=== PATIENT | female | born 1985 | race Caucasian/White ===

== ENCOUNTER → 2017-04-16 | Outpatient (CLI) | payer OTHER ==
--- NOTE | 2017-04-16 23:42 | CONS ---
CONSULTATION DATE OF SERVICE: 04/16/2017 This 31-year-old lady has been evaluated in the sleep center for multiple awakenings from sleep and difficulties with initiating sleep and falling asleep after awakenings. HISTORY OF PRESENT ILLNESS/SLEEP-WAKE EVALUATION: Patient's usual sleep schedule on working days is from 9 p.m. to 6 a.m., on weekends from around 10 or 11 p.m. to 8:30 a.m. Sometimes she has problems with falling asleep, although she does not watch TV in the bedroom. According to her , she does not snore, but she wakes up from sleep up to 7 times with up to 3 episodes of nocturia with episodes of sweating, restless legs, grinding teeth. In the morning she wakes up tired and has sleepiness during the day. [place] Sleepiness Scale is increased at 10. When she has time, she may take a nap around 3 p.m. Sometimes she sees her dreams right after closing her eyes, which could be an indication of hypnagogic hallucinations. No history of sleep paralysis or cataplexy. PAST MEDICAL HISTORY: Positive for hypothyroidism. PAST SURGICAL HISTORY: 1. Tonsillectomy. 2. Adenoidectomy. 3. Appendectomy. MEDICATIONS: 1. Levothyroxine. 2. . 3. control pills. REVIEW OF SYSTEMS: Awakenings from sleep, sleepiness during the day, sometimes difficulties with initiating sleep. SOCIAL HISTORY: Negative for smoking. Alcohol consumption occasional. FAMILY HISTORY: Hypertension, heart problems, arthritis, sinus headaches, bronchitis, pneumonia, headaches, cancer, thyroid problems, mental illness. PHYSICAL EXAMINATION: lady without distress. VITAL SIGNS: BP 135/84, HR 65, RR 16, height 5 feet 3 inches, weight 233, BMI 41.2, temperature 98.0, oxygen saturation at room air 100%. HEENT: PERRLA, EOMI. Evaluation of oropharynx showed tongue protrudes midline; extremely low position of soft palate. NECK: Supple. No JVD. Thyroid is not palpable. LUNGS: Clear to percussion and to auscultation. Good air exchange. No wheezing or rhonchi. HEART: S1, S2 regular. No murmurs, gallops or rubs. ABDOMEN: Obese. Soft and nontender. Bowel sounds are present. No organomegaly appreciated. EXTREMITIES : No clubbing or cyanosis. CRAFT RECRUITER: Awake, alert, and oriented X3. Cranial nerves 2 to 7 intact. There is no fasciculation or atrophy. noted. No focal deficits observed. IMPRESSION: 1. Low position of soft palate, multiple awakenings from sleep with nocturia, excessive daytime sleepiness; obstructive sleep apnea-hypopnea syndrome. 2. Difficulties to initiate sleep and difficulties to reinitiate sleep after awakenings in the middle of the night. Psychophysiological insomnia. 3. Obesity; body mass index of 41.2. 4. Hypothyroidism. 5. Status post tonsillectomy and adenoidectomy. 6. Status post appendectomy. PLAN: 1. Polysomnography for evaluation of patient's breathing during sleep. 2. CPAP/BiPAP titration if sleep study confirms obstructive sleep apnea-hypopnea syndrome. 3. Preferable position during sleep on the side. 4. No driving if patient feels any sleepiness. Patient is aware of civil and criminal liability for unsafe driving. 5. I will see patient for follow up visit to explain results of testing and following plan. Thank you very much for referring this patient for consultation. Sincerely, Neil Cunha MD, PhD, FAASM Diplomat of [place] [employer] [place] [employer] Nondestructive Tester of [facility] Frannie MMODL / IJN: [id number] /
== END | disposition home or self-care (01) ==
LOC: SLEEP 15:01
PROVIDERS: ATTEND Internal Medicine
DX: G47.33 Obstructive sleep apnea (adult) (pediatric) (principal); E66.9 Obesity, unspecified; F10.20 Alcohol dependence, uncomplicated; E03.9 Hypothyroidism, unspecified; Z90.89 Acquired absence of other organs; Z68.41 Body mass index [BMI] 40.0-44.9, adult; Z98.890 Other specified postprocedural states; Z79.899 Other long term (current) drug therapy; Z79.3 Long term (current) use of hormonal contraceptives
CPT/HCPCS: 99211

== ENCOUNTER → 2018-12-17 | Outpatient (CLI) | payer OTHER ==
--- NOTE | 2018-12-19 09:53 | US ---
EXAMINATION TYPE: Transabdominal DATE OF EXAM: 12/17/2018 4:50 PM COMPARISON: NONE CLINICAL HISTORY: Z36 Confirm Dates. EXAM PERFORMED: Transvaginal (TV) and Transabdominal (TA) EXAM MEASUREMENTS: GESTATIONAL AGE / DATING Physician Established: Not yet established Dates by LMP: ( 9 weeks/1 days) EDC: 07/20/18 Dates by First Scan: No previous this is first scan Dates by Current Scan for: (9 weeks/3 days) EDC: 07/18/18 MATERNAL ANATOMY Morbidly obese patient. Uterus: 9.9 x 7.3 x 6.8cm Right Ovary: not visualized due to increased uterine size/obesity Left Ovary: not visualized due to increased uterine size/obesity Post CDS / Adnexa: wnl Presence of subchorionic bleed: 1.9 x 0.4 x 0.6cm GESTATION / SURVEY CRL: 2.7 (9 weeks/3 days) Yolk Sac (normal less than 6mm): 3mm Heart Rate: 172 bpm Rhythm: Normal IUP: Viable IUP Date of LMP: 10/14/18 Beta HcG (if available): Not available at this time IMPRESSION: 1. A spiculated Single intrauterine gestation estimated at 9 weeks 3 days gestation based on the [place] n-rump length. Cardiac activity measures 172 bpm. 2. Small subchorionic hemorrhage measuring 1.9 x 0.4 x 0.6 cm.
== END | disposition home or self-care (01) ==
LOC: RADUSWWP 16:18
PROVIDERS: ATTEND Obstetrics & Gynecology
DX: O20.8 Other hemorrhage in early pregnancy (principal); Z3A.09 9 weeks gestation of pregnancy
CPT/HCPCS: 76801; 76817

== ENCOUNTER → 2019-02-28 | Outpatient (CLI) | payer OTHER ==
--- NOTE | 2019-02-28 11:02 | US ---
EXAMINATION TYPE: US OB anatomy transabd DATE OF EXAM: 02/28/2019 COMPARISON: NONE HISTORY: O36.62X0 Large for dates, 2dn trimester Anatomy TECHNIQUE: Transvaginal (TV) EXAM MEASUREMENTS: GESTATIONAL AGE / DATING Physician Established: (19 weeks/ days) 4 EDC: 07/21/2019 Dates by LMP: (19 weeks/4 days) 07/21/2019 EDC Dates by First Scan: (09 weeks/3 days) EDC: 07/21/2019 Dates by Current Scan for: (19 weeks/1 days) EDC: 07/24/2019 SURVEY IUP: Single PLACENTA: Anterior PREVIA: No previa FREYA: 12.9 cm Normal CERVICAL LENGTH (transabdominal: norm > 3.0cm): 3.5 cm BIOMETRY PRESENTATION: Variable LIE: Variable BPD: 4.6 cm 19 weeks / 6 days HC: 12 cm 16 weeks / 0 days AC: 17.5 cm 22 weeks / 1 days FL: 3.3 cm 20 weeks / 3 days ESTIMATED WEIGHT IN GRAMS: 373.13 grams ESTIMATED WEIGHT IN LBS/OZ: 0 lbs. 13 oz. WEIGHT PERCENTAGE BASED ON ESTABLISHED DATE: 96.1 % HC/AC: 1.05cm Normal FL/AC: 19.5cm Normal HEART RATE: 170 bpm RHYTHM: Normal ANATOMY SEEN (within normal limits): * Lateral Vent (< 1 cm) .6 cm * Cisterna Magna (< 1.1 cm) .5 cm * Nuchal Fold (< 0.6 cm) .4 cm * Cerebellum (varies with age) 1.7 cm Choroid Plexus (bilateral) Midline Falx Cavus Septi Pellucidi Outflow tracts: LVOT Stomach Situs Nose / Lips Diaphragm Kidneys (bilateral) Bladder Three Vessel Cord Longitudinal Spine Transverse Spine Arms (bilateral) Legs (bilateral) ANATOMY SEEN (does not appear within normal limits): ANATOMY NOT SEEN: 4 chamber heart RVOT Cord Insert MATERNAL WALL MEASUREMENT: 3.0 cm from skin to anterior uterine wall (if exam limited due to body sharpe bitus). Patient returning for additional imaging in 2 weeks. IMPRESSION: Somewhat limited exam given patient body habitus. 1. A 4 chamber heart, right ventricular outflow track and cord insertion are not seen and the patient will return for additional imaging in 2 weeks. 2. Single live intrauterine is seen with a sonographic age of 19 weeks and 1 day and estima marissa date of delivery of 07/24/2019. Amniotic fluid index and cervical length are within normal limits.
== END | disposition home or self-care (01) ==
LOC: RADUSWWP 08:55
PROVIDERS: ATTEND Obstetrics & Gynecology
DX: O36.62X0 Maternal care for excessive fetal growth, second trimester, not applicable or unspecified (principal); Z3A.19 19 weeks gestation of pregnancy
CPT/HCPCS: 76811

== ENCOUNTER → 2019-03-10 | Outpatient (CLI) | payer OTHER ==
--- NOTE | 2019-03-11 07:14 | US ---
EXAMINATION TYPE: US OB Call Back DATE OF EXAM: 03/10/2019 COMPARISON: 02/28/2019 CLINICAL HISTORY: O36.62X0 EXCESSIVE GROWTH. Call back for cord insertion, RVOT and 4 chamber. GESTATIONAL AGE / DATING Dates by Initial Survey Scan: (21 weeks/0 days) EDC: 07/21/2019 HEART RATE: 142 bpm RHYTHM: Normal ANATOMY SEEN (second anatomic survey look): Four Chamber Heart Outflow tracts:? RVOT Cord Insert MATERNAL WALL MEASUREMENT: 4.3 cm from skin to anterior uterine wall (if exam limited due to body sharpe bitus). 4CH heart, RVOT and Cord insertion seen on today's call back ultrasound. IMPRESSION: 1. Additional small parts evaluate abnormal. 2. Cardiac activity measures 142 bpm was observed during the study.
== END | disposition home or self-care (01) ==
LOC: RADUSWWP 08:24
PROVIDERS: ATTEND Obstetrics & Gynecology
DX: Z53.9 Procedure and treatment not carried out, unspecified reason (principal)

== ENCOUNTER 2019-07-16 06:18 | Inpatient (IN) | payer OTHER ==
[2019-07-16] MEDS ORDERED: CARBOPROST TROMETHAMINE 250 MCG/ML 1 ML AMP IM PRN (06:55)
[2019-07-16] MEDS ORDERED: LIDOCAINE 0.5% (PF) 5 MG/ML (50 ML SDV) SQ PRN (06:55)
[2019-07-16] MEDS ORDERED: METHYLERGONOVINE 0.2 MG/ML 1 ML AMP IM PRN (06:55)
[2019-07-16] MEDS ORDERED: OXYTOCIN 10 UNIT/ML 1 ML VIAL IM PRN (06:55)
[2019-07-16] MEDS ORDERED: TERBUTALINE 1 MG/ML VIAL SQ PRN (06:55)
[2019-07-16] MEDS ORDERED: BUTORPHANOL 1 MG/ML 1 ML VIAL IV PRN (07:39)
[2019-07-16 08:13] LABS: Basophils % (A) 0 %; Eosinophils # (A) 0.3 k/uL (0-0.7); Eosinophils % (A) 2 %; HCT 37.8 % (34.0-46.0); HGB 12.2 gm/dL (11.4-16.0); Hypochromasia Slight; Lymphocytes # (A) 2.6 k/uL (1.0-4.8); Lymphocytes % (A) 18 %; MCHC 32.3 g/dL (31.0-37.0); MCV 83.7 fL (80.0-100.0); Mean Platelet Volume 8.5; Monocytes # (A) 0.7 k/uL (0-1.0); Monocytes % (A) 5 %; Neutrophils # (A) 10.8 k/uL (1.3-7.7); Neutrophils % (A) 74 %; Platelet Count 271 k/uL (150-450); RBC 4.52 m/uL (3.80-5.40); RDW 14.5 % (11.5-15.5); WBC 14.6 k/uL (3.8-10.6)
[2019-07-16] MEDS: LACTATED RINGERS 1,000 ML IV SCH ×2 (09:36→23:03)
[2019-07-16] MEDS ORDERED: LACTATED RINGERS 1,000 ML IV SCH (09:45)
[2019-07-16] MEDS: OXYTOCIN 30 UNITS/500 ML NS 30 UNIT in SALINE 1 500ML.BAG IV SCH (09:48)
--- NOTE | 2019-07-16 11:38 | P.HPOB ---
History of Present Illness H&P Date: 07/16/19 Chief Complaint: Spontaneous rupture of membranes 33-year-old presents at 39 weeks and 2 days with spontaneous rupture membranes at 2 AM. She presented to the hospital around 6:00 in the morning and she was 37 m dilated, 50% effaced, and -3 station. Kalyn irregularly. heart tones 130 with moderate variability and reactive. Review of Systems All systems: negative Constitutional: Denies chills, Denies fever Eyes: denies blurred vision, denies pain Ears, nose, mouth and throat: Denies headache, Denies sore throat Cardiovascular: Denies chest pain, Denies shortness of breath Respiratory: Denies cough Gastrointestinal: Denies abdominal pain, Denies diarrhea, Denies nausea, Denies vomiting Genitourinary: Denies dysuria, Denies hematuria Musculoskeletal: Denies myalgias Integumentary: Denies pruritus, Denies rash Neurological: Denies numbness, Denies weakness Psychiatric: Denies anxiety, Denies depression Endocrine: Denies fatigue, Denies weight change Past Medical History Past Medical History: Thyroid Disorder Additional Past Medical History / Comment(s): hx migraines, febrile seizures as (stopped at 3 yo), hypoglycemia, nearsightedness-glasses at times, hypothyroidism (125 mcg levothyroxine. Obstetric history: She's had 2 previous vaginal deliveries, this is her third . She's had care with Dr. Lyons since the first trimester. 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 Blood type is O+, antibody is negative, rubella immune, HIV nonreactive, syphilis and hepatitis were both negative. Thyroid has been checked a few times during the and remained euthyroid. History of Any Multi-Drug Resistant Organisms: None Reported Past Surgical History: Adenoidectomy, Appendectomy, Tonsillectomy Additional Past Surgical History / Comment(s): 1999 and 2005 Past Anesthesia/Blood Transfusion Reactions: No Reported Reaction Past Psychological History: Anxiety, Depression Additional Psychological History / Comment(s): hx. was prev on meds. no meds x 4-5 years Smoking Status: Never smoker Past Alcohol Use History: None Reported Past Drug Use History: None Reported - Past Family History Father Additional Family Medical History / Comment(s): depression Mother Family Medical History: Asthma, Hypertension Medications and Allergies Home Medications Medication Instructions Recorded Confirmed Type Levothyroxine Sodium [Synthroid] 125 mg PO DAILY 07/16/19 07/16/19 History Allergies Allergy/AdvReac Type Severity Reaction Status Date / Time No Known Allergies Allergy Verified 07/16/19 06:53 Exam Osteopathic Statement: *. No significant issues noted on an osteopathic structural exam other than those noted in the History and Physical/Consult. Vital Signs Temp Pulse Resp BP Pulse Ox 07/16/19 09:59 96.9 F L 87 20 113/68 07/16/19 06:55 97.2 F L 86 14 119/74 98 Intake and Output 07/15/19 07/16/19 07/16/19 22:59 06:59 14:59 Other: Weight 117.934 kg 117.934 kg Heart: Regular rate and rhythm Lungs: Clear to auscultation bilaterally Abdomen: Soft, nontender Extremities: Negative Homans sign Results Result Diagrams: 07/16/19 07:25 Abnormal Lab Results - Last 24 Hours (Table) 07/16/19 Range/Units 07:25 WBC 14.6 H (3.8-10.6) k/uL Neutrophils # 10.8 H (1.3-7.7) k/uL Assessment and Plan (1) Spontaneous rupture of membranes Current Visit: Yes Status: Acute Code(s): [id number] - SNOMED Code(s): 120708335 Plan: 1. Admit to family place 2. The patient has an extensive plan which includes the fact that she doesn't really want Pitocin. I advised that she can wait a few more hours before getting Pitocin but she may need Pitocin augmentation in order to get her contractions more regular to deliver this baby in a timely fashion since she did rupture membranes at 2 AM. Patient is in agreement with this plan. 3. Anticipate normal vaginal delivery
[2019-07-16] MEDS ORDERED: CITRIC ACID-SODIUM CITRATE 15 ML CUP PO ONE (13:15)
[2019-07-16] MEDS ORDERED: ceFAZolin 3 GM in SODIUM CHLORIDE 0.9% 100 ML IVPB ONE (13:30)
[2019-07-16] MEDS ORDERED: MORPHINE SULFATE (PF) 0.3 MG/0.3 ML SYR ONE (13:55)
[2019-07-16] MEDS ORDERED: OXYTOCIN 10 UNIT/ML 1 ML VIAL ONE (13:55)
[2019-07-16] MEDS ORDERED: ONDANSETRON 4 MG/2 ML VIAL ONE (13:55)
[2019-07-16] MEDS ORDERED: PHENYLEPHRINE-0.9% NACL SYG 1 MG/10 ML SYRINGE ONE (13:55)
[2019-07-16] MEDS ORDERED: KETOROLAC 30 MG/ML 1 ML VIAL ONE (13:55)
[2019-07-16] MEDS ORDERED: diphenhydrAMINE 50 MG CAP PO PRN (14:41)
[2019-07-16] MEDS ORDERED: diphenhydrAMINE 50 MG/ML 1 ML VIAL IVP PRN ×2 (14:41)
[2019-07-16] MEDS ORDERED: diphenhydrAMINE 25 MG CAP PO PRN (14:41)
[2019-07-16] MEDS ORDERED: ZOLPIDEM 5 MG TAB PO PRN (14:41)
[2019-07-16] MEDS ORDERED: ONDANSETRON 4 MG/2 ML VIAL IVP PRN ×2 (14:41→14:51)
[2019-07-16] MEDS ORDERED: METOCLOPRAMIDE 5 MG/ML 2 ML VIAL IVP PRN (14:41)
[2019-07-16] MEDS ORDERED: NALOXONE 0.4 MG/ML 1 ML VIAL IV PRN ×2 (14:41→14:51)
[2019-07-16] MEDS ORDERED: LANOLIN CREAM 5 GM TUBE TOPICAL PRN (14:41)
[2019-07-16] MEDS ORDERED: KETOROLAC 30 MG/ML 1 ML VIAL IVP PRN (14:41)
--- NOTE | 2019-07-16 14:41 | P.OP ---
Date of Procedure: 07/16/19 Preoperative Diagnosis: 1. at 39 weeks and 2 days 2. Active labor 3. Breech presentation 4. Family planning Postoperative Diagnosis: 1. at 39 weeks and 2 days 2. Active labor 3. Breech presentation 4. Family planning Procedure(s) Performed: Primary low transverse with tubal ligation Anesthesia: spinal Surgeon: Odilia Kraft Marking Room Supervisor #1: Vika Paulino Estimated Blood Loss (ml): 500 IV fluids (ml): 700 Urine output (ml): 500 Pathology: other (Partial segment of Bilateral fallopian tubes) Condition: stable Disposition: floor Indications for Procedure: 33-year-old presented at 39 weeks and 2 days with spontaneous rupture of membranes. Her cervix was 3 cm dilated, 50% effaced, and -3 station at 6 AM when she presented. She was shelbie irregularly. heart tones 130 with moderate variability and reactive. Pitocin augmentation had been started a few hours after she presented. She did not a lot of cervical exams as was indicated by her plan. When we did check her she was 7 cm and found to be in breech presentation. Informed consent was obtained and section was called. Patient had talked to Dr. Lyons in the office over a month ago about a tubal ligation. She understands this is a permanent procedure. Operative Findings: Viable male, Apgars 8, 9, weight 7 lbs. 12 oz., tomás breech presentation. Normal uterus, tubes, ovaries. Description of Procedure: Patient was taken to the operating room where spinal anesthesia was found be adequate. She was prepped and draped in normal sterile fashion in dorsal supine position with a leftward tilt. Pfannenstiel skin incision was made the scalpel and carried through to the underlying layer of fascia with the scalpel. Fascia was incised in midline and carried bilaterally with the Yepez scissors. The superior aspect of the fascial incision was grasped with Hamzah clamps elevated and the underlying rectus muscles dissected off with the Yepez's. Attention was then turned to inferior aspect of same incision which in a similar fashion was grasped tented up and the underlying rectus muscles dissected off with the Yepez's. The rectus muscles were the midline and the peritoneum was identified tented up and entered sharply with the scalpel. The incision was extended superiorly and inferiorly with good visualization of the bladder. The bladder blade was inserted and the vesicouterine peritoneum was incised the Metzenbaums then carried bilaterally and bladder flap created digitally. A low transverse incision was then made on the uterus with the scalpel. This was carried bilaterally and digital manner. 's head delivered atraumatically, nose and mouth bulb suctioned, cord clamped and cut, infant handed off to waiting nurses. Apgars 8,9, weight 7 lbs. 12 oz. Placenta delivered manually, intact with three-vessel cord. The uterus is exteriorized and cleared of all clots and debris. The uterine incision was closed with 0 Vicryl in a running locked fashion. Second layer of the same sutures used in imbricating fashion to obtain excellent hemostasis. Bladder flap was then reapproximated using 2-0 Vicryl in a running fashion. Both ovaries and tubes appeared normal. The left fallopian tube was grasped with hemostat and a window was made in the mesosalpinx with the Bovie. The left fallopian tube was doubly ligated and a section was removed. The pedicles were cauterized with the Bovie. The right fallopian tube was grasped with a hemostat and a window was made in the mesosalpinx with the Bovie. The right fallopian tube was doubly ligated and a section was removed. The pedicles were cauterized with the Bovie. The uterus was placed back into the abdomen. The fascia was reapproximated using 0 Vicryl in a running fashion. The subcutaneous tissues closed with 3-0 Vicryl running fashion. The skin was closed oni. Patient tolerated the procedure well, sponge and instrument counts were correct times 2 and she was taken to the recovery room in stable condition.
[2019-07-16] MEDS ORDERED: OXYTOCIN 20 UNITS/1000 ML NS 1,000 ML IV SCH (14:45)
[2019-07-16] MEDS ORDERED: MORPHINE SULFATE 2 MG/ML SYRINGE IVP PRN (14:51)
[2019-07-16] MEDS ORDERED: NALBUPHINE 10 MG/ML (1 ML AMP) IM STA (17:41)
[2019-07-16] MEDS ORDERED: NALBUPHINE 10 MG/0.5 ML (10 mL MDV) IM STA (19:20)
[2019-07-16] MEDS: SENNOSIDES-DOCUSATE SODIUM 1 EACH TAB PO SCH (20:56)
[2019-07-17 06:01] LABS: Basophils % (A) 0 %; Eosinophils # (A) 0.2 k/uL (0-0.7); Eosinophils % (A) 2 %; HCT 30.8 % (34.0-46.0); HGB 10.3 gm/dL (11.4-16.0); Hypochromasia Slight; Lymphocytes # (A) 1.8 k/uL (1.0-4.8); Lymphocytes % (A) 14 %; MCHC 33.3 g/dL (31.0-37.0); MCV 80.9 fL (80.0-100.0); Mean Platelet Volume 8.5; Monocytes # (A) 0.5 k/uL (0-1.0); Monocytes % (A) 4 %; Neutrophils # (A) 10.2 k/uL (1.3-7.7); Neutrophils % (A) 79 %; Platelet Count 215 k/uL (150-450); RDW 14.6 % (11.5-15.5); WBC 12.8 k/uL (3.8-10.6)
[2019-07-17] MEDS: LEVOTHYROXINE 125 MCG TAB PO SCH (06:26)
[2019-07-17] MEDS: SENNOSIDES-DOCUSATE SODIUM 1 EACH TAB PO SCH ×2 (08:10→20:56)
--- NOTE | 2019-07-17 08:28 | P.PN ---
Progress Note - Text Date: 07/17/2019 Time: 08:21 The patient is status post section Vital signs stable VAS: 0-10 Patient has no complaints of pain. The patient incurred some minimal itching yesterday, this itching is now subsiding. Pain meds to be managed by service.
[2019-07-17] MEDS: ACETAMINOPHEN TAB 325 MG TAB PO PRN ×2 (08:31→17:38)
[2019-07-17] MEDS ORDERED: HYDROcodone/APAP 7.5-325MG 1 EACH TAB PO PRN (09:24)
--- NOTE | 2019-07-17 09:26 | P.PNOBGPC ---
Subjective - Subjective Principal diagnosis: Status post primary low transverse with tubal ligation POD#1 Interval history: Patient seen and examined. Denies nausea, vomiting, chest pain, shortness of breath or calf pain. She tolerated her regular breakfast this morning. Patient reports: Reports appetite normal, Reports voiding normally, Reports pain well controlled, Reports ambulating normally Dolph: doing well Objective - Vital Signs Latest vital signs: Vital Signs Temp Pulse Resp BP BP Pulse Ox 07/17/19 08:37 18 07/17/19 08:00 98.5 F 76 18 98/62 07/17/19 07:00 18 07/17/19 05:00 12 07/17/19 03:39 96.9 F L 72 12 96/61 100 07/17/19 03:00 12 07/17/19 00:44 12 07/17/19 00:00 97.2 F L 67 12 102/58 98 07/16/19 23:00 12 98 07/16/19 21:00 12 07/16/19 20:00 95.4 F L 58 L 12 105/59 100 07/16/19 19:51 100 07/16/19 19:00 12 07/16/19 17:51 18 07/16/19 16:49 53 L 18 120/63 07/16/19 16:19 50 L 16 107/67 07/16/19 15:51 18 98 07/16/19 15:49 95.5 F L 18 103/57 07/16/19 15:34 52 L 18 98/66 97 07/16/19 15:12 68 18 107/59 97 07/16/19 15:04 70 18 98/62 98 07/16/19 14:51 16 97 07/16/19 14:49 95.8 F L 72 16 97/53 97 07/16/19 09:59 96.9 F L 87 20 113/68 Intake and Output 07/16/19 07/17/19 07/17/19 22:59 06:59 14:59 Output Total 400 1250 Balance -400 -1250 Output: Urine 400 1250 Uretheral (Will) 100 Other: # Voids 1 - Exam Lungs: bilateral: normal Chest: Normal S1, Normal S2 Extremities: Present: normal Abdomen: Present: normal appearance, soft. Absent: distention, tenderness Incision: Present: normal, dry, intact Uterus: Present: normal, firm - Labs Labs: Abnormal Lab Results - Last 24 Hours (Table) 07/17/19 Range/Units 05:37 WBC 12.8 H (3.8-10.6) k/uL Hgb 10.3 L (11.4-16.0) gm/dL Hct 30.8 L (34.0-46.0) % Neutrophils # 10.2 H (1.3-7.7) k/uL Assessment and Plan (1) Spontaneous rupture of membranes Current Visit: Yes Status: Resolved Code(s): OFX8851 - SNOMED Code(s): 811855664 (2) Status post primary low transverse section Current Visit: Yes Status: Acute Code(s): Z98.891 - HISTORY OF UTERINE SCAR FROM PREVIOUS SURGERY SNOMED Code(s): 506792580 (3) Status post tubal ligation at time of delivery, current hosp Current Visit: Yes Status: Acute Code(s): O80 - ENCOUNTER FOR FULL-TERM UNCOMPLICATED DELIVERY; Z30.2 - ENCOUNTER FOR STERILIZATION SNOMED Code(s): 605977607 Plan: 1. Increase ambulation 2. By mouth pain medication 3. Continue care
[2019-07-17] MEDS: SIMETHICONE 80 MG CHEWABLE PO PRN (10:14)
[2019-07-17] MEDS: IBUPROFEN 600 MG TAB PO PRN (13:24)
[2019-07-17] MEDS: LACTATED RINGERS 1,000 ML IV SCH ×2 (21:50)
[2019-07-17] MEDS: OXYTOCIN 30 UNITS/500 ML NS 30 UNIT in SALINE 1 500ML.BAG IV SCH (21:51)
[2019-07-18] MEDS: ACETAMINOPHEN TAB 325 MG TAB PO PRN ×3 (01:15→11:40)
[2019-07-18 01:42] VITALS: RESP 16
[2019-07-18] MEDS: IBUPROFEN 600 MG TAB PO PRN ×2 (02:34→08:27)
[2019-07-18] MEDS: LACTATED RINGERS 1,000 ML IV SCH (04:14)
[2019-07-18] MEDS: LEVOTHYROXINE 125 MCG TAB PO SCH (06:04)
--- NOTE | 2019-07-18 08:21 | P.DS ---
Providers Date of admission: 07/16/19 06:49 Expected date of discharge: 07/18/19 Attending physician: Deepti Lyons Primary care physician: Stated None Hospital Course: This is a 33-year-old female 3 para 2 at 39-2/7 weeks who presented with spontaneous rupture of membranes. She underwent oxytocin augmentation of labor and then it was discovered that the baby was in a breech presentation. She underwent a primary low transverse section with bilateral partial's appendectomy on 07/16/2019 and delivered a viable male in the tomás breech presentation with scores of 8 at 1 minute and 9 at 5 minutes and weight of 7 lbs. 12 oz. Her postoperative and course has been uncomplicated. She is breast-feeding. Lochia is decreasing. She is passing flatus but no bowel movement yet. Her pain is fairly well controlled with ibuprofen and Tylenol. She is refusing narcotic pain medication. Vital signs are stable. Abdomen is soft with positive bowel sounds 4. Incision is clean dry and intact with oni in place. Extremities show negative Homans. Impression is status post primary low transverse section with bilateral partial salpingectomy postoperative day #2. Plan is to discharge home today. Routine postoperative and instructions are given. [place] will be removed and Steri-Strips placed prior to discharge. She will be given a prescription for ibuprofen 600 mg. She is advised to follow up in the office in 1 week for a postoperative check and in 6 weeks for a check. She is advised to call the office if she has any further questions or concerns prior to her appointment time. She does have a breast pump at home. Procedures: Primary low transverse section with bilateral partial salpingectomy on 07/16/2019 Patient Condition at Discharge: Stable Plan - Discharge Summary New Discharge Prescriptions: New Ibuprofen [Motrin] 600 mg PO Q6HR PRN #60 tab PRN Reason: Mild Pain Or Fever >= 100.5 Continue Levothyroxine Sodium [Synthroid] 125 mg PO DAILY Discharge Medication List Levothyroxine Sodium [Synthroid] 125 mg PO DAILY 07/16/19 [History] Ibuprofen [Motrin] 600 mg PO Q6HR PRN #60 tab 07/18/19 [Rx] Follow up Appointment(s)/Referral(s): Deepti Lyons DO [Doctor of Osteopathic Medicine] - 1 Week Activity/Diet/Wound Care/Special Instructions: Instructions 1. Do not begin any exercise program for 3 weeks. 2. Do not resume sexual relations for 3 weeks or longer if uncomfortable. 3. You may take tub baths or showers at any time. 4. You may use tampons if desired after 3 weeks. 5. Keep the area of episiotomy (stitches) clean and dry. 6. If you are not nursing, wear a good fitting, supportive bra during the day and limit fluid intake for at least 1 week to prevent breast engorgement. 7. Call the office, [phone], within the next week to make appointment for your 6 week checkup if it has not already been made. 8. Report any of the following occurrences to the doctor promptly: a. Heavy, excessive bleeding b. Chills, fever c. Burning or frequency of urination d. Pain or redness and breasts if nursing e. Increasing pain or swelling in episiotomy (stitches). In addition to the above instructions, the following additional should be followed: 1. No heavy lifting or straining (exercising) until after 6 week checkup. 2. Keep abdominal incision clean and dry: You may wear a dressing if more comfortable. 3. Make office appointment for 10 days after going home or as instructed by her doctor. Discharge Disposition: HOME SELF-CARE
[2019-07-18] MEDS: SENNOSIDES-DOCUSATE SODIUM 1 EACH TAB PO SCH (08:27)
[2019-07-18 08:44] VITALS: BP 112/56; PULSE 79; TEMP 97.2
[2019-07-18] MEDS: SIMETHICONE 80 MG CHEWABLE PO PRN (11:39)
== END 2019-07-18 13:35 | disposition home or self-care (01) | DRG 784 ==
LOC: FBPOP 06:18 → 4FBP 06:49
PROVIDERS: ADMIT Obstetrics & Gynecology; ATTEND Obstetrics & Gynecology
PROC: 10D00Z1 Extraction of Products of Conception, Low, Open Approach (ICD-10-PCS; principal; 2019-07-16 14:00)
PROC: 0UB70ZZ Excision of Bilateral Fallopian Tubes, Open Approach (ICD-10-PCS; principal; 2019-07-16 14:00)
DX: O32.1XX0 Maternal care for breech presentation, not applicable or unspecified (principal); O99.354 Diseases of the nervous system complicating childbirth; O99.72 Diseases of the skin and subcutaneous tissue complicating childbirth; G43.909 Migraine, unspecified, not intractable, without status migrainosus; L29.9 Pruritus, unspecified; O99.284 Endocrine, nutritional and metabolic diseases complicating childbirth; E03.9 Hypothyroidism, unspecified; Z37.0 Single live birth; Z3A.39 39 weeks gestation of pregnancy; Z86.59 Personal history of other mental and behavioral disorders; Z90.49 Acquired absence of other specified parts of digestive tract; Z30.2 Encounter for sterilization; Z81.8 Family history of other mental and behavioral disorders; Z82.49 Family history of ischemic heart disease and other diseases of the circulatory system; Z82.5 Family history of asthma and other chronic lower respiratory diseases
CPT/HCPCS: 85025; 86850; 86900; 86901; 88302

== ENCOUNTER → 2019-08-09 | Outpatient (CLI) | payer OTHER ==
--- NOTE | 2019-08-09 17:15 | US ---
EXAMINATION TYPE: US pelvic limited DATE OF EXAM: 08/09/2019 COMPARISON: NONE CLINICAL HISTORY: R19.09 pelvic mass. July 15. Midline at palpable ( scar) complex lesion measuring 4.8 x 5.1 x 9.2cm. Patient has no fever . Cystic lesion which is not completely anechoic appears to have septations. Thin wall is present witho ut significant vascularity. Impression: As above. Probable moderate size resolving subcutaneous hematoma.
== END | disposition home or self-care (01) ==
LOC: RADUSWWP 16:21
PROVIDERS: ATTEND Obstetrics & Gynecology
DX: N94.9 Unspecified condition associated with female genital organs and menstrual cycle (principal)
CPT/HCPCS: 76857

== ENCOUNTER → 2021-06-12 | Outpatient (CLI) | payer OTHER ==
--- NOTE | 2021-06-12 14:38 | MM ---
Reason for exam: clinical finding. Baseline mammogram. History: Took hormonal contraceptives for 5 years. Indicated problem(s): lump or thickening and pain in the right breast. Physical Findings: A clinical breast exam by your physician is recommended on an annual basis and results should be correlated with mammographic findings. MG 3D Diag Mammo W/Cad SEGUNDO Bilateral CC and MLO view(s) were taken. There are scattered fibroglandular densities. Finding: There is an intermediate concern, suspicious 8 mm high density, spiculated round mass located 11 cm from the nipple in the upper outer quadrant, posterior position of the right breast. ASSESSMENT: Incomplete: need additional imaging evaluation, BI-RAD 0 RECOMMENDATION: Ultrasound of the right breast.
--- NOTE | 2021-06-12 14:40 | USB ---
Reason for exam: additional evaluation requested from abnormal screening. History: Took hormonal contraceptives for 5 years. US Breast Limited RT Right limited breast ultrasound including focal area of concern, retroareolar and axilla demonstrates a 1.0cm lymph node at the axillary tail. ASSESSMENT: Benign, BI-RAD 2 RECOMMENDATION: Stereotactic core biopsy of the right breast. (right mammographic findings) Called Dr. Herzog office with mammographic findings and has scheduled an appointment for the patient for 06/28/21 at 7:[address] Caraballo. Biopsy scheduled for 06/28/21 at 8:00. PRELIMINARY REPORT CALLED AND FAXED TO DR. CARABALLO ON 06/12/21
== END | disposition home or self-care (01) ==
LOC: RADMAMWWP 07:22
PROVIDERS: ATTEND Family Medicine
DX: N63.10 Unspecified lump in the right breast, unspecified quadrant (principal)
CPT/HCPCS: 77062; 77066

== ENCOUNTER → 2021-06-28 | Day surgery (SDC) | payer OTHER ==
[2021-06-28 07:19] VITALS: RESP 16
--- NOTE | 2021-06-28 08:41 | P.PCN ---
Date of Procedure: 06/28/21 Preoperative Diagnosis: Mammographic abnormality right breast Postoperative Diagnosis: Same Procedure(s) Performed: Stereotactic core biopsy right breast Anesthesia: local Surgeon: Chantal Caraballo Pathology: other (Breast tissue) Condition: stable Disposition: same day Indications for Procedure: Radiographic nodularity right breast/ultrasound performed which was negative; therefore stereotactic core biopsy was recommended Operative Findings: Fibrofatty breast tissue Description of Procedure: Sil is a 35-year-old white female with a mammographic abnormality/nodularity noted in the right breast for which stereotactic core biopsy has been recommended. An ultrasound was performed which did not reveal the lesion of concern. The lesion is an 8 mm high-density spiculated bowel mass 11 cm from the nipple in the upper outer quadrant. The patient was examined and the lesion was not clearly palpable. Risk and benefits of the procedure were discussed with the patient as well as alternatives and she wished to proceed. The patient was taken to the stereotactic core biopsy room. She was positioned prone on the lower table. A county engineer film was obtained. A lateral to medial approach was utilized. The area of concern was clearly identified. The breast was prepped using Betadine. 20 mL of 1% lidocaine were used to anesthetize the area of concern. A 9-gauge vacuum-assisted core rotating biopsy needle was driven to the correct coordinates. A prefire film was obtained, and the needle was noted to be in the correct location. The needle was fired. A posterior film was obtained and the needle was noted to be in the correct location. 13 core biopsy specimens were obtained. Radiograph of the specimen was not obtained as there were no microcalcifications of concern. A secure marked top had clip was placed. The clips appeared to be in the correct location. The specimen was sent for pathology. The patient will follow with Dr. Manning next week. CC: Dr. Herzog
[2021-06-28 09:08] VITALS: BP 113/77; PULSE 66; TEMP 98.6
--- NOTE | 2021-06-28 09:40 | MM ---
Sil is a 35-year-old white female with a mammographic abnormality/nodularity noted in the right breast for which stereotactic core biopsy has been recommended. An ultrasound was performed which did not reveal the lesion of concern. The lesion is an 8 mm high-density spiculated bowel mass 11 cm from the nipple in the upper outer quadrant. The patient was examined and the lesion was not clearly palpable. Risk and benefits of the procedure were discussed with the patient as well as alternatives and she wished to proceed. The patient was taken to the stereotactic core biopsy room. She was positioned prone on the lower table. A director biologics film was obtained. A lateral to medial approach was utilized. The area of concern was clearly identified. The breast was prepped using Betadine. 20 mL of 1% lidocaine were used to anesthetize the area of concern. A 9-gauge vacuum-assisted core rotating biopsy needle was driven to the correct coordinates. A prefire film was obtained, and the needle was noted to be in the correct location. The needle was fired. A posterior film was obtained and the needle was noted to be in the correct location. 13 core biopsy specimens were obtained. Radiograph of the specimen was not obtained as there were no microcalcifications of concern. A secure marked top had clip was placed. The clips appeared to be in the correct location. The specimen was sent for pathology. The patient will follow with Dr. Manning next week. DIYA
== END ==
LOC: RADMAMWWP 07:12
PROVIDERS: ATTEND Surgery
DX: R92.8 Other abnormal and inconclusive findings on diagnostic imaging of breast (principal)
CPT/HCPCS: 19081; 88305; 88342; 88341; A4648; J2001

== ENCOUNTER → 2021-07-05 | Outpatient (CLI) | payer OTHER ==
--- NOTE | 2021-07-05 12:22 | P.PN ---
Subjective Progress Note Date: 07/05/21 Principal diagnosis: Reactive lymph node right breast Sil is a 35-year-old white female status post stereotactic core biopsy right breast on 4821. Pathology revealed fragments of reactive lymph node tissue and was felt to be benign concordant. The patient tolerated the procedure well however she did develop a hematoma and some ecchymosis at the biopsy site. Objective - Constitutional General appearance: Present: cooperative - EENT Eyes: Present: EOMI ENT: Present: hearing grossly normal - Neck Neck: Present: normal ROM - Respiratory Respiratory: bilateral: CTA - Cardiovascular Heart sounds: normal: S1, S2 - Integumentary Integumentary Comment(s): Ecchymosis and hematoma at biopsy site right breast, no evidence of any infection Assessment and Plan Assessment: Impression: Benign concordant stereotactic core biopsy right breast intramammary lymph node Postprocedure ecchymosis and hematoma resolving Plan: Repeat right breast mammogram in 6 months with physician exam at that time CC: Dr. Herzog
[2021-07-05 12:24] VITALS: BP 118/78; PULSE 68; RESP 17; TEMP 98.1
== END | disposition home or self-care (01) ==
LOC: WWCWWP 12:09
PROVIDERS: ATTEND Surgery
DX: Z53.9 Procedure and treatment not carried out, unspecified reason (principal)